=== PATIENT | male | born 1995 | race Caucasian/White ===

== ENCOUNTER 2021-10-25 23:01 | Emergency (ER) | payer OTHER, SELFPAY ==
--- NOTE | 2021-10-25 00:55 | RAD_ITS ---
STUDY: X-RAY CHEST REASON FOR EXAM: Male, 26 years old. fever TECHNIQUE: Single AP portable view of the chest. COMPARISON: None. FINDINGS: The lungs are clear and expanded. There is no demonstrated pleural abnormality. Normal size heart. Normal mediastinum and sean. Normal visualized pulmonary arteries. Normal visualized aortic arch and descending thoracic aorta. Normal visualized thoracic spine. Normal visualized ribs, clavicles, and shoulders. There is no demonstrated abnormality of the visualized soft tissue structures of the upper abdomen. RAD/Chest 1 View (Portable) IMPRESSION: Normal x-ray examination of the chest. Electronically Signed: Marcin Crain MD at 1:22 EST ,
[2021-10-25 23:02] VITALS: BP 161/99; PULSE 116; RESP 19; TEMP 38.3; O2SAT 96; BMI 45.6
--- NOTE | 2021-10-25 23:21 | EX.ED.DYSGE1 ---
HPI History of Present Illness Chief Complaint: Fever Informant: patient and spouse/S.O. Onset/Context/Timing Context: Gradual Onset Timing: Intermittent Current Severity: Mild Narrative Narrative: 27-year-old male no stated past medical or surgical history. Has had a fever for last 2 days. The highest its been document is 102.8. He also states has had body aches. Denies any vomiting. He chronically has loose stools that is not new. He has been able to orally hydrate himself has been drinking a lot of water. Said his urine is clear. It is not cloudy or bloody. He has also been using Tylenol. Complaining of diffuse body aches. No cough. No shortness of breath. No dysuria. Took a home COVID test that was negative. No one else at home is ill. He was not vaccinated against COVID. He denies any rashes. No abdominal pain. No cough. Prior similar symptoms: No Recent Illness/Hospitalization: No PFSH PFSH Medical History no medical history no medical history Home Medications NK 10/25/21 [History Last Taken Unknown] Allergy/AdvReac Type Severity Reaction Status Date / Time No Known Allergies Allergy Verified 10/25/21 23:02 Surgical History no surgical history no surgical history Social History Smoking Status: Current some day smoker tobacco type: e-cigarettes ROS ROS ED ROS Narrative Fever and body aches. Review of Systems ROS Unobtainable: Denies due to encephalopathy Constitutional Constitutional ED: Reports fever(s) Eyes Eyes: Denies change in vision ENT ENT ED: Denies ear pain, rhinorrhea or sore throat Cardiovascular Cardiovascular: Denies chest pain Respiratory/Chest Respiratory/Chest: Denies cough, dyspnea or sputum Gastrointestinal Gastrointestinal: Reports diarrhea; Denies abdominal pain, nausea or vomiting Genitourinary Genitourinary ED: Denies dysuria Musculoskeletal Musculoskeletal: Reports myalgias Integumentary Denies rash Neurologic Neurologic: Denies headache(s) Psychiatric Psychiatric: Denies depression Endocrine Endocrinology: Denies polyuria Allergic/Immunologic Allergic/Immunologic ED: Denies urticaria EXAM Physical Exam Narrative Exam Narrative: 23-year-old male no acute distress initial temperature here is 101. Pulse ox 96% on room air no signs of hypoxia. HEENT exam normal. Posterior pharynx normal. Moist weeks membranes. TMs normal bilaterally. Neck nontender no lymphadenopathy. No meningismus. Lungs clear to auscultation bilaterally. Heart tachycardic rate about 115 no murmur. Abdomen soft nontender normal bowel sounds no peritoneal signs. Obese. Moving all 4 extremities. Nontender. No rashes. Normal dealer card room strength bilaterally. Normal dorsi plantar flexion. Back nontender. Neurologically is awake alert with no focal motor deficits. Answering questions and following commands. Const Vital Signs: 10/25/21 23:02 10/26/21 00:05 Temperature 101 F H Temperature Source Oral Pulse Rate 116 H Respiratory Rate 19 H Respiratory Pattern Normal Blood Pressure 161/99 H Blood Pressure Mean 119 Pulse Ox 96 Oxygen Delivery Method Room Air Positive well nourished, well developed and obese; Negative for cachectic, contractures or unkempt General Appearance ED: well developed and NAD; Negative for unkempt, cachectic, contractures, cyanotic, diaphoretic or pallor Nutritional Appearance: obese; Negative for cachectic HEENT Reports TM's clear and moist mucous membranes Negative for trauma Tympanic Membrane ED: Yes TM's clear Eyes PERRL and EOMs intact bilaterally General Eye ED: Negative for pale conjunctiva or scleral icterus Neck no lymphadenopathy, supple and no JVD General: Negative for tenderness Chest Wall inspection of chest normal and palpation of chest normal Resp normal respiratory effort and clear to auscultation bilaterally Effort and Inspection: Negative for pain with movement Auscultation: Negative for rales, rhonchi or wheezes Cardio regular rhythm, S1 normal heart sound, S2 normal heart sound and no murmurs; Negative for regular rate Rate: tachycardic GI normal to inspection, nondistended, normoactive bowel sounds, non-tender, non-distended and no masses Inspection: Negative for abdominal distention Auscultation: normoactive bowel sounds Palpation: soft; Negative for tender, guarding or rebound tenderness present Back/Spine no CVA tenderness General Back: Negative for CVA tenderness Cervical Spine: Negative for cervical spine tenderness Thoracic Spine / Upper Back: Negative for thoracic spinal tenderness or paraspinal muscle tenderness Lumbar Spine / Lower Back: Negative for lumbar spinal tenderness Extremity normal to inspection General Extremety ED: Negative for edema or tenderness General Extremity: Negative for edema Neuro oriented x3 Sensorium / Orientation: alert; Negative for orientation impaired, lethargic or stuporous Motor Exam: strength 5/5 throughout; Negative for general weakness Psych mental status grossly normal Appearance: Negative for unkempt Attitude: No agitated Mood & Affect: Negative for depressed, anxious or tearful Skin no rashes or lesions noted and no wounds General Skin Exam: Negative for jaundice or pallor MDM MDM MDM Narrative Medical decision making narrative: 25-year-old male with a fever. Body aches. Exam benign. He does have a temperature here of 101. He does not look septic or toxic. Negative Covid test and chest x-ray. He is having no urinary symptoms. I do not think he needs blood work. He has been orally hydrating at home he and I discussed and he does not want nor did I think he needs an IV. He will be given antipyretics for his fever. Repeat a.m. patient is doing well at 1 AM. Abdomen nontender. Exam unchanged. No rashes. Patient be discharged home. Treat as a viral syndrome. Fluids and rest. Tylenol and Motrin. Follow-up. Off work today. Lab Data Attestation: I reviewed the patient's lab results. Lab results narrative: Rapid Covid antigen test is negative. Radiography Chest X-Ray - ED: 1 View, Read by ED Physician, Heart, Lungs, Mediastinum, Bony Structures and No Acute Disease Diagnostic Testing: Chest x-ray, portable, single view interpreted by myself shows no acute abnormality. Discharge Plan Triage Chief Complaint: Fever ED Provider: Calvin Terrell Dx/Rx/DC Orders Clinical Impression: Fever, Viral syndrome Instructions: ED Fever Control (Adult), ED Viral Syndrome (Adult) Prescriptions: No Action NK RF: 0 Primary Care Provider: Care Physician,Priscila Primary Referrals: Jose Jauregui MD [STAFF PHYSICIAN] - 3-5 Days if not improving NOT,DEFINED [NON-STAFF] - Activity Restrictions/Additional Instructions: Plenty of fluids and rest. Alternate ibuprofen and Tylenol for your fever. Follow-up with your doctor if not improving or return if worse. Disposition Disposition: Home, Self Care
[2021-10-26] MEDS: Acetaminophen 500 MG Tablet 1000 MG PO
[2021-10-26 01:15] VITALS: BP 158/80; PULSE 99; RESP 16; RESP 18; TEMP 37.9; O2SAT 97
== END 2021-10-26 01:17 | disposition home or self-care (01) ==
PROVIDERS: Emergency Provider Emergency Medicine; Visit Provider Emergency Medicine
DX: R50.9 Fever, unspecified (principal); B34.9 Viral infection, unspecified; F17.210 Nicotine dependence, cigarettes, uncomplicated; R19.7 Diarrhea, unspecified
CPT/HCPCS: 71045; 87426; 99283

== ENCOUNTER → 2022-06-20 | Outpatient (CLI) | payer OTHER, SELFPAY ==
[2022-06-20 17:25] LABS: Absolute Lymphocyte Count 2.59 X10^3/uL (0.83-4.51); Absolute Neutrophil Count 5.9 X10^3/uL (2.0-7.7); Basophil# 0.06 X10^3/uL; Basophil% 0.6 % (0-1); Eosinophil# 0.13 X10^3/uL; Eosinophils% 1.3 % (0-5); Hematocrit 44.8 % (40-54); Hemoglobin 15.1 g/dL (13.0-16.5); Lymphocyte # 2.59 X10^3/ul (0.83-4.51); Lymphocyte % 26.2 % (19-41); Mean Corp Hgb Conc 33.7 g/dL (32-36); Mean Corpuscular Hgb 29.2 pg (27.0-32.0); Mean Corpuscular Volume 86.7 fL (80-94); Mean Platelet Vol. 9.2 fl (6.2-12.0); Monocyte# 1.12 X10^3/uL; Monocyte% 11.3 % (0-10); NRBC Flagged by Analyzer 0 % (0-5); Neutrophil # 5.93 X10^3/uL (2.7-7.7); Neutrophil % 60.2 % (47-70); Platelet Count 277 K/mm3 (150-450); RBC Distribution Width CV 13.7 % (11.6-14.6); RBC Distribution Width SD 43.2 fl (35.1-43.9); Red Blood Count 5.17 M/mm3 (4.6-6.2); White Blood Count 9.9 K/mm3 (4.4-11.0)
[2022-06-20 17:30] LABS: Erythrocyte Sedimentation Rate 12 mm/hr (0-20)
[2022-06-20 17:51] LABS: AST(SGOT) 26 U/L (15-37); Alanine Aminotransfer ALT/SGPT 60 U/L (16-61); Albumin, Serum 3.9 g/dL (3.2-5.0); Alkaline Phosphatase 63 U/L (45-117); Anion Gap 6 (5-15); BUN 10 mg/dL (7-18); BUN/Creat Ratio 11.2 RATIO (10-20); CRP 3.12 mg/L (0.0-3.0); Calcium,Total 8.9 mg/dL (8.5-10.1); Chloride 109 mmol/L (98-107); Creatinine, Serum 0.89 mg/dL (0.70-1.30); EST Glomerular Filtration Rate 110 mL/min (>60); Est Glom Filt Rate - Afr Amer 133 mL/min (>60); Globulin 3.9 g/dL (2.2-4.2); Glucose 82 mg/dL (74-106); LDH 178 U/L (87-241); Potassium 3.7 mmol/L (3.5-5.1); Protein, Total 7.8 g/dL (6.4-8.2); Sodium Level 142 mmol/L (136-145)
[2022-06-22 13:07] LABS: Anti-Centromere B Ab <0.2 AI (0.0-0.9); Anti-Chromatin <0.2 AI (0.0-0.9); Anti-Jo <0.2 AI (0.0-0.9); Anti-Scleroderma-70 AB <0.2 AI (0.0-0.9); RNP Ab <0.2 AI (0.0-0.9); SJOGREN'S Anti-SS-A test < 0.2 AI (0.0-0.9); SJOGREN'S Anti-SS-B test < 0.2 AI (0.0-0.9); Smith Ab <0.2 AI (0.0-0.9)
[2022-06-23 11:26] LABS: Anti-dsDNA Ab <1 IU/mL (0-9)
[2022-06-24 15:08] LABS: Endomysial Antibody IgA Negative (Negative)
[2022-06-25 08:53] LABS: Immunoglobulin A 194 mg/dL (90-386); t-Transglutaminase IgA <2 U/mL (0-3)
[2022-06-28 19:07] LABS: Albumin 3.9 g/dL (2.9-4.4); Alpha-1-Globulins 0.3 g/dL (0.0-0.4); Alpha-2-Globulins 0.8 g/dL (0.4-1.0); Cytoplasmic Ab (C-ANCA) <1:20 titer (Neg:<1:20); Immunoglobulin A 195 mg/dL (90-386); Immunoglobulin E 25 IU/mL (6-495); Immunoglobulin G 1097 mg/dL (603-1613); Immunoglobulin M 62 mg/dL (20-172); PROEL- TOTAL PROTEIN 7.1 g/dL (6.0-8.5)
[2022-06-29 11:55] LABS: Perinuclear Ab (P-ANCA) <1:20 titer (Neg:<1:20)
== END | disposition home or self-care (01) ==
PROVIDERS: PCP Nurse Practitioner Family; Referring Provider Nurse Practitioner Adult Health; Visit Provider Nurse Practitioner Adult Health
DX: R10.9 Unspecified abdominal pain (principal); K52.9 Noninfective gastroenteritis and colitis, unspecified
CPT/HCPCS: 36415; 80053; 82784; 82785; 83516; 83615; 84165; 85025; 85652; 86140; 86225; 86235; 86255; 86256; 86334

== ENCOUNTER → 2022-06-27 | Outpatient (CLI) | payer OTHER, SELFPAY ==
[2022-07-05 12:27] LABS: Calprotectin, Stool 27 ug/g (0-120)
== END | disposition home or self-care (01) ==
LOC: LABSPEC 14:55
PROVIDERS: Visit Provider Nurse Practitioner Adult Health
DX: R10.9 Unspecified abdominal pain (principal); K52.9 Noninfective gastroenteritis and colitis, unspecified; K58.9 Irritable bowel syndrome, unspecified
CPT/HCPCS: 83630; 83993; 87493; 87506

== ENCOUNTER → 2022-06-28 | Outpatient (CLI) | payer OTHER, SELFPAY ==
--- NOTE | 2022-06-28 19:04 | CT_ITS ---
STUDY: CT ABDOMEN AND PELVIS WITH CONTRAST REASON FOR EXAM: Male, 27 years old. abd pain, diarrhea -- oral and iv RADIATION DOSAGE (If Supplied By Facility): CTDIvol = ( 17.07 ) mGy, DLP = ( 1361.15 ) mGycm TECHNIQUE: Transaxial images were obtained from the dome of the diaphragm to the symphysis pubis without oral contrast. Oral and amp; IV Readi-CAT and amp; 100mL Isovue-370 was administered. Sagittal and coronal images were reconstructed. Individualized dose optimization techniques were used for this CT. COMPARISON: None. FINDINGS: The visualized lung bases are unremarkable. The visualized portions of the heart are within normal limits. Normal liver. Multiple small bilirubin type stones are seen within the gallbladder without evidence for acute inflammation.. Normal spleen. Normal pancreas. Normal bilateral adrenal glands. Normal right kidney. Normal left kidney. Normal visualized stomach. Normal small intestine. Diffuse fecal retention noted within the colon.. The appendix is visualized and appears normal. Normal abdominal aorta. Normal inferior vena cava. Normal retroperitoneum. Normal urinary bladder. Normal abdominal wall. Normal osseous structures. CT/Abdomen/Pelvis WITH Contrast IMPRESSION: Cholelithiasis without definitive evidence for acute cholecystitis. Ultrasound would be useful for further evaluation if clinically warranted. Otherwise no significant abnormality Electronically Signed: Babatunde Horne MD at 22:22 EDT ,
== END | disposition home or self-care (01) ==
PROVIDERS: Referring Provider Nurse Practitioner Adult Health; Visit Provider Nurse Practitioner Adult Health
DX: K52.9 Noninfective gastroenteritis and colitis, unspecified (principal); R10.9 Unspecified abdominal pain
CPT/HCPCS: 74177; Q9967

== ENCOUNTER 2022-07-31 19:39 | Observation (INO) | payer OTHER, SELFPAY ==
[2022-07-31 19:40] VITALS: BP 139/90; PULSE 129; RESP 16; TEMP 36.8; O2SAT 97; BMI 46.3
--- NOTE | 2022-07-31 20:32 | US_ITS ---
EXAM: US ABDOMEN LIMITED, RIGHT UPPER QUADRANT CLINICAL INDICATION: RUQ PAIN TECHNIQUE: Real-time ultrasound of the right upper quadrant with image documentation. This report was created using [employer] report generation technology. COMPARISON: None. FINDINGS: LIVER: Hepatomegaly measuring 21.6 cm with no focal lesions. There is normal echotexture. No intrahepatic biliary ductal dilation. GALLBLADDER: Gallbladder is distended measuring 10.3 cm in length. Sonographic Ge''s sign is positive. Multiple gallstones are seen. No pericholecystic fluid. The gallbladder wall measures 3 mm. COMMON BILE DUCT: Common bile duct is normal. The proximal common bile duct is within normal limits for the patient''s age. PANCREAS: Pancreas is not visualized due to overlying bowel gas. RIGHT KIDNEY: Right kidney is normal. There is no hydronephrosis. No shadowing calculus. No focal lesion or perinephric collection is demonstrated. FREE FLUID: No ascites. US/Gallbladder IMPRESSION: Findings are concerning for acute cholecystitis with positive sonographic Ge''s sign noted. Electronically Signed: Tung Malcolm MD at 21:48 EST ,
--- NOTE | 2022-07-31 20:33 | ED.VIS.GI ---
HPI HPI - GI History of Present Illness Chief Complaint: Abd Pain Informant: patient Nausea/Vomiting/Emesis GI Symptom: Positive for Nausea and Vomiting Onset: Today Diarrhea/Melena/Hematochezia GI Symptom: Negative for Diarrhea, Melena or Hematochezia Associated Symptoms Associated Symptoms: Positive for Dysuria (today); Negative for Frequency, Hematuria or Urgency Narrative Narrative: Patient presents with epigastric pain radiates across his upper abdomen that has been there for 2 years. He states it has been worse for 2 months. When asked why he came in today for it he states it has been worse for all day today. In addition he has been vomiting all day, nonbloody nonbilious, he denies any fevers that he knows of. Sometimes the pain goes into his back. He states last month he was here for this and he was told he had gallstones, he was pulses follow-up with surgery and have a follow-up ultrasound but he forgot all about it. [facility] Medical History Abdominal pain Anxiety Depression Home Medications cholestyramine (with sugar) 4 gram oral powder 4 g PO BID diarrhea #378 grams 06/20/22 [Rx Last Taken Unknown] sucralfate 1 gram tablet 1 g PO QACHS #120 tabs 06/20/22 [Rx Last Taken Unknown] Allergy/AdvReac Type Severity Reaction Status Date / Time maple flavor Allergy Intermediate unk Uncoded 06/20/22 15:07 Social History Smoking Status: Current some day smoker tobacco type: e-cigarettes ROS ROS ED Constitutional Constitutional ED: Denies chills or fever(s) Eyes Eyes: Denies change in vision or diplopia ENT ENT ED: Denies rhinorrhea or sore throat Cardiovascular Cardiovascular: Denies chest pain or palpitations Respiratory/Chest Respiratory/Chest: Denies cough or dyspnea Gastrointestinal Gastrointestinal: Reports abdominal pain, nausea and vomiting; Denies diarrhea Genitourinary Genitourinary ED: Reports dysuria; Denies hematuria Musculoskeletal Musculoskeletal: Reports back pain; Denies neck pain Integumentary Denies abscess or rash Neurologic Neurologic: Denies headache(s), paresthesias or weakness Psychiatric Psychiatric: Denies anxiety or suicidal thoughts EXAM Physical Exam Const Vital Signs: 07/31/22 19:40 Temperature 98.2 F Temperature Source Temporal Pulse Rate 129 H Respiratory Rate 16 Blood Pressure 139/90 H Blood Pressure Mean 106 Pulse Ox 97 Oxygen Delivery Method Room Air Positive well nourished, well developed and obese General Appearance ED: well developed and NAD Nutritional Appearance: obese HEENT Reports moist mucous membranes normocephalic and atraumatic Eyes PERRL and EOMs intact bilaterally Neck full ROM and supple Resp normal respiratory effort and clear to auscultation bilaterally Cardio regular rate, regular rhythm and no murmurs GI non-distended GI Narrative: Mostly tender across upper abdomen worst in the right upper quadrant and epigastrium. No rebound tenderness. No guarding. Auscultation: normoactive bowel sounds Palpation: soft Back/Spine Back/Spine Narrative: Mild left CVA tenderness General Back: other FROM Extremity normal to inspection General Extremety ED: Negative for edema, pulses abnormal or tenderness General Extremity: Negative for edema or pulses abnormal Neuro oriented x3, CN's II-XII intact bilaterally and no sensory deficits noted Sensorium / Orientation: awake and alert Motor Exam: strength 5/5 throughout Skin no rashes or lesions noted and no wounds MDM MDM MDM Narrative Medical decision making narrative: Work-up and ultrasound consistent with acute cholecystitis. Does not have liver enzymes or lipase elevation. Symptoms treated, IV fluids given, Zosyn started, discussed with Dr. Lester, she is in agreement with admitting to her service for a cholecystectomy in the near future. Lab Data Attestation: I reviewed the patient's lab results. Labs: Laboratory Results - last 24 hr 07/31/22 07/31/22 07/31/22 20:24 20:24 20:45 WBC 11.9 H RBC 5.66 Hgb 16.0 Hct 48.1 MCV 85.0 MCH 28.3 MCHC 33.3 RDW Std Deviation 41.8 RDW Coeff of Kaly[place] 13.5 Plt Count 255 MPV 9.5 Immature Gran % (Auto) 0.900 Neut % (Auto) 83.1 H Lymph % (Auto) 7.4 L [place] % (Auto) 8.3 Eos % (Auto) 0.0 Baso % (Auto) 0.3 Absolute Neuts (auto) 9.9 H Absolute Lymphs (auto) 0.88 Nucleated RBC % 0 Sodium 137 Potassium 4.0 Chloride 107 Carbon Dioxide 20.0 L Anion Gap 10 BUN 13 Creatinine 0.96 Estim Creat Clear Calc 113.80 Est GFR (MDRD) Af Amer 122 Est GFR (MDRD) Non-Af 101 BUN/Creatinine Ratio 13.5 Glucose 105 Calcium 9.0 Total Bilirubin 0.70 AST 16 ALT 37 Alkaline Phosphatase 59 Total Protein 7.8 Albumin 3.8 Globulin 4.0 Albumin/Globulin Ratio 1.0 Lipase 69 L Urine Color Yellow Urine Clarity Clear Urine pH 5.0 Ur Specific [place] 1.025 Urine Protein 30 H Urine Glucose (UA) Normal Urine Ketones 5 H Urine Occult Blood Negative Urine Nitrite Negative Urine Bilirubin Negative Urine Urobilinogen Normal Ur Leukocyte Esterase Negative Urine RBC 0 SEEN Urine WBC 0 SEEN Ur Squamous Epith Cells 0 SEEN Urine Bacteria 0 SEEN Urine Mucus RARE Radiography Diagnostic Testing: Clinical Impression(s) from Imaging Studies Gallbladder Ultrasound 07/31/22 20:32 IMPRESSION: Findings are concerning for acute cholecystitis with positive sonographic Ge''s sign noted. Electronically Signed: Tung Malcolm MD at 21:48 EST , Discharge Plan Triage Chief Complaint: Abd Pain ED Provider: Giancarlo Salcedo Dx/Rx/DC Orders Clinical Impression: Calculus of gallbladder with acute cholecystitis Prescriptions: No Action cholestyramine (with sugar) 4 gram powder 4 g PO BID Qty: 378 1RF Rx Instructions: administer w/meal; avoid other meds within 1hr before or 4-6hr after dose sucralfate 1 gram tablet 1 g PO QACHS Qty: 120 0RF Primary Care Provider: Chio Buckner Referrals: Chio Buckner, [employer] [Primary Care Provider] - Disposition Disposition: Acute Care Hospital [facility]
[2022-07-31 20:47] LABS: Absolute Lymphocyte Count 0.88 X10^3/uL (0.83-4.51); Absolute Neutrophil Count 9.9 X10^3/uL (2.0-7.7); Basophil# 0.04 X10^3/uL; Basophil% 0.3 % (0-1); Hematocrit 48.1 % (40-54); Lymphocyte # 0.88 X10^3/ul (0.83-4.51); Lymphocyte % 7.4 % (19-41); Mean Corp Hgb Conc 33.3 g/dL (32-36); Mean Corpuscular Hgb 28.3 pg (27.0-32.0); Mean Platelet Vol. 9.5 fl (6.2-12.0); Monocyte# 0.99 X10^3/uL; Monocyte% 8.3 % (0-10); NRBC Flagged by Analyzer 0 % (0-5); Neutrophil # 9.91 X10^3/uL (2.7-7.7); Neutrophil % 83.1 % (47-70); Platelet Count 255 K/mm3 (150-450); RBC Distribution Width CV 13.5 % (11.6-14.6); RBC Distribution Width SD 41.8 fl (35.1-43.9); Red Blood Count 5.66 M/mm3 (4.6-6.2); White Blood Count 11.9 K/mm3 (4.4-11.0)
[2022-07-31 20:50] LABS: Bacteria 0 SEEN /hpf (None Seen); Red Blood Cells-Urine 0 SEEN /hpf (0-5); Squamous Epithelial Cells - UA 0 SEEN /hpf (0-5); White Blood Cells 0 SEEN /hpf (0-5)
[2022-07-31 20:52] LABS: Color, Urine Yellow (Yellow); Glucose, Dipstick Normal (Normal); Ketone-Dipstick 5 mg/dl (Negative); Leukocyte Esterase-Dipstick Negative /ul (Negative); Nitrite-Dipstick Negative (Negative); Occult Blood-Urine Negative /ul (Negative); Protein-Dipstick 30 mg/dl (Negative); Specific Gravity, Urine 1.025 (1.002-1.030); Urine Bilirubin Dipstick Negative (Negative); Urine Clarity Clear (Clear); Urine Urobilinogen Normal (Normal)
[2022-07-31 21:00] LABS: Mucous, Urine RARE /hpf (<or=2+)
[2022-07-31 21:04] LABS: AST(SGOT) 16 U/L (15-37); Alanine Aminotransfer ALT/SGPT 37 U/L (16-61); Albumin, Serum 3.8 g/dL (3.2-5.0); Alkaline Phosphatase 59 U/L (45-117); Anion Gap 10 (5-15); BUN 13 mg/dL (7-18); BUN/Creat Ratio 13.5 RATIO (10-20); Chloride 107 mmol/L (98-107); Creatinine, Serum 0.96 mg/dL (0.70-1.30); EST Glomerular Filtration Rate 101 mL/min (>60); Est Glom Filt Rate - Afr Amer 122 mL/min (>60); Glucose 105 mg/dL (74-106); Lipase 69 U/L (73-393); Protein, Total 7.8 g/dL (6.4-8.2); Sodium Level 137 mmol/L (136-145)
[2022-07-31] MEDS: Morphine 4 MG/ML Syringe IV (21:17)
[2022-07-31] MEDS: Ketorolac 30 MG/ML Syringe IV (21:17)
[2022-07-31] MEDS: Ondansetron 4 MG/2 ML Vial IV (21:17)
[2022-07-31] MEDS: 0.9% Normal Saline 1,000 ML 1000 ML IV (21:17)
[2022-07-31 22:13] VITALS: BP 139/90; BP 148/80; PULSE 129; PULSE 85; RESP 16; RESP 18; TEMP 36.8; O2SAT 97; O2SAT 98
[2022-07-31 23:33] VITALS: BMI 45.1
[2022-07-31 23:35] VITALS: BP 139/90; PULSE 129; RESP 16; TEMP 36.8; O2SAT 97
[2022-07-31 23:37] VITALS: BP 166/102; PULSE 109; RESP 18; TEMP 37.6; O2SAT 100
[2022-08-01] VITALS (17 sets, daily range): BP systolic 135–195; BP diastolic 80–119; PULSE 73–109; RESP 16–18; TEMP 36.7–37.6; O2SAT 93–100; BMI 45.1
--- NOTE | 2022-08-01 | GALL_PTH ---
PATIENT: JOSE MARISCAL LOC: PCU U#:[id number] AGE/SX: 27/M ROOM: [facility] RE07/31/[address]: Dr. Lillian Lester MD : 1995 BED: 1 DIS: 08/01/2022 SPEC #: [id number] RECD: 08/02/22 09:54 STATUS: REGGIE REPawan #: [id number] JONY: 08/01/22 00:[address]: Lillian Lester DEPT: SURGICAL PATHOLOGY RECD BY: Cristhian Caruso ENTERED: 08/02/22 09:54 SP TYPE: SAMANTHA CISSE DR: Chio Buckner, CAVALRY SCOUT-C Tissues: Gallbladder, NOS Procedures: Surgery Specimen Level III HEADER OPERATION: Laparoscopic, cholecystectomy with IOC PRE-OP DIAGNOSIS: Calculus of gallbladder with acute cholecystitis TISSUE SUBMITTED: Gallbladder MICROSCOPIC DIAGNOSIS Gallbladder, cholecystectomy: Chronic cholecystitis, cholelithiasis and cholesterolosis. SJ:jhon 08/05/2022 MICROSCOPIC DESCRIPTION Slides are reviewed. GROSS DESCRIPTION Received is one container labeled with the patient's name and designated gallbladder. The specimen consists of a gallbladder measuring 9 cm in length and up to 3 cm in diameter. The external surface is pink-meza, smooth and glistening for the most part. Focally it is granular, hemorrhagic and contains cautery artifact. The gallbladder contains green-yellow mucoid bile. Present in the container and also in the gallbladder are multiple mulberry, greenish-yellow stones measuring in aggregate 3.5 x 3 x 0.7 cm and 0.5 to 1 cm in greatest dimension. The mucosa also shows several yellowish streaks consistent with cholesterolosis. The mucosa is bile-stained and without any mass lesions. The gallbladder wall measures up to 0.3 cm in thickness. Lead Miner sections from the gallbladder and the cystic duct are submitted in one cassette. / CARLTON:jhon 08/02/2022 TC:3 CPT: 38244
[2022-08-01] MEDS: 0.9% Saline Lock 10 ML Syringe IV (00:08)
[2022-08-01] MEDS: 0.9% Normal Saline 1,000 ML 130 ML IV ×2 (00:08→14:58)
[2022-08-01 04:57] LABS: Absolute Lymphocyte Count 1.32 X10^3/uL (0.83-4.51); Absolute Neutrophil Count 6.3 X10^3/uL (2.0-7.7); Basophil# 0.03 X10^3/uL; Basophil% 0.3 % (0-1); Eosinophil# 0.01 X10^3/uL; Eosinophils% 0.1 % (0-5); Hematocrit 44.3 % (40-54); Lymphocyte # 1.32 X10^3/ul (0.83-4.51); Lymphocyte % 15.1 % (19-41); Mean Corp Hgb Conc 33.9 g/dL (32-36); Mean Corpuscular Volume 85.7 fL (80-94); Mean Platelet Vol. 9.5 fl (6.2-12.0); Monocyte# 1.02 X10^3/uL; Monocyte% 11.6 % (0-10); NRBC Flagged by Analyzer 0 % (0-5); Neutrophil # 6.32 X10^3/uL (2.7-7.7); Neutrophil % 72.1 % (47-70); Platelet Count 228 K/mm3 (150-450); RBC Distribution Width CV 13.4 % (11.6-14.6); RBC Distribution Width SD 42.2 fl (35.1-43.9); Red Blood Count 5.17 M/mm3 (4.6-6.2); White Blood Count 8.8 K/mm3 (4.4-11.0)
[2022-08-01 05:35] LABS: AST(SGOT) 16 U/L (15-37); Alanine Aminotransfer ALT/SGPT 34 U/L (16-61); Albumin, Serum 3.3 g/dL (3.2-5.0); Alkaline Phosphatase 51 U/L (45-117); Anion Gap 6 (5-15); BUN 14 mg/dL (7-18); BUN/Creat Ratio 13.3 RATIO (10-20); Bilirubin, Direct 0.19 mg/dL (0.00-0.30); Calcium,Total 8.2 mg/dL (8.5-10.1); Chloride 109 mmol/L (98-107); Creatinine, Serum 1.05 mg/dL (0.70-1.30); EST Glomerular Filtration Rate 91 mL/min (>60); Est Glom Filt Rate - Afr Amer 110 mL/min (>60); Estimated Creatinine Clearance 107.55 ml/min; Globulin 3.5 g/dL (2.2-4.2); Glucose 106 mg/dL (74-106); Potassium 3.8 mmol/L (3.5-5.1); Protein, Total 6.8 g/dL (6.4-8.2); Sodium Level 137 mmol/L (136-145)
--- NOTE | 2022-08-01 08:38 | HP.PCM_ITS ---
HPI - General General Date of Admission: 07/31/22 HPI Narrative JOSE MARISCAL, is a 27 M who presents to the ER due to epigastric and right upper quadrant pain. Patient states it got worse yesterday morning. Patient did have nausea and vomiting with this as well. Patient states he has had similar episodes about twice a month for several months that have been similar last about 5 hours. Patient continues to have epigastric?right upper quadrant pain even after getting pain meds but it is more tolerable. Patient had a leukocytosis of 11.9 on admission currently is 8.8. Patient had gallbladder ultrasound which showed a gallbladder wall 3 mm, gallstones, no pericholecystic fluid, normal common bile duct, positive Ge sign?patient's LFTs were normal. [facility] Medical History Abdominal pain Anxiety Depression Allergy/AdvReac Type Severity Reaction Status Date / Time maple flavor Allergy Intermediate unk Uncoded 07/31/22 23:34 Social History Smoking Status: Current some day smoker tobacco type: e-cigarettes Vital Signs Vital Signs Vital Signs: 07/31/22 19:40 07/31/22 22:13 07/31/22 22:13 Temperature 98.2 F 98.2 F Temperature Source Temporal Temporal Pulse Rate 129 H 85 129 H Respiratory Rate 16 18 16 Respiratory Effort Respiratory Depth Respiratory Pattern Blood Pressure 139/90 H 148/80 H 139/90 H Blood Pressure Mean 106 102 106 Blood Pressure Source Blood Pressure Position Blood Pressure Location Pulse Ox 97 98 97 Oxygen Delivery Method Room Air Room Air Room Air 07/31/22 23:35 07/31/22 23:37 08/01/22 00:18 Temperature 98.2 F 99.6 F H Temperature Source Temporal Oral Pulse Rate 129 H 109 H Respiratory Rate 16 18 Respiratory Effort Normal Non-Labored Respiratory Depth Normal Respiratory Pattern Normal Blood Pressure 139/90 H 166/102 H Blood Pressure Mean 106 123 Blood Pressure Source Monitor Blood Pressure Position Sitting Blood Pressure Location Right Forearm Pulse Ox 97 100 Oxygen Delivery Method Room Air Room Air Room Air 08/01/22 00:24 08/01/22 00:53 08/01/22 05:20 Temperature 99.6 F H 99.6 F H 98.8 F Temperature Source Oral Oral Oral Pulse Rate 109 H 109 H 92 Respiratory Rate 18 18 18 Respiratory Effort Respiratory Depth Respiratory Pattern Blood Pressure 166/102 H 166/102 H 135/81 H Blood Pressure Mean 123 123 99 Blood Pressure Source Monitor Monitor Blood Pressure Position Sitting Semi-Fowlers Blood Pressure Location Right Forearm Right Forearm Pulse Ox 100 100 97 Oxygen Delivery Method Room Air Room Air Room Air 08/01/22 05:58 Temperature 98.8 F Temperature Source Oral Pulse Rate 92 Respiratory Rate 18 Respiratory Effort Respiratory Depth Respiratory Pattern Blood Pressure 135/81 H Blood Pressure Mean 99 Blood Pressure Source Blood Pressure Position Blood Pressure Location Pulse Ox 97 Oxygen Delivery Method Room Air Weight Weight: 306 lb 0.026 oz Body Mass Index (BMI) 45.1 Physical Exam Const alert, oriented x3 and no apparent distress HEENT normocephalic and head/scalp atraumatic Resp normal respiratory effort Cardio regular rate GI soft to palpation; Negative for non-distended Palpation: tender epigastric and RUQ; Negative for guarding Extremity no clubbing, cyanosis or edema Neuro CN's II-XII intact bilaterally Psych mental status grossly normal Results Lab / Micro Data Result Diagrams: 08/01/22 04:10 08/01/22 04:10 Labs: Laboratory Results - last 24 hr 07/31/22 20:24: WBC 11.9 H, RBC 5.66, Hgb 16.0, Hct 48.1, MCV 85.0, MCH 28.3, MCHC 33.3, RDW Std Deviation 41.8, RDW Coeff of Kalyan 13.5, Plt Count 255, MPV 9.5, Immature Gran % (Auto) 0.900, Neut % (Auto) 83.1 H, Lymph % (Auto) 7.4 L, Dubois % (Auto) 8.3, Eos % (Auto) 0.0, Baso % (Auto) 0.3, Absolute Neuts (auto) 9.9 H, Absolute Lymphs (auto) 0.88, Nucleated RBC % 0 07/31/22 20:24: Sodium 137, Potassium 4.0, Chloride 107, Carbon Dioxide 20.0 L, Anion Gap 10, BUN 13, Creatinine 0.96, Estim Creat Clear Calc 113.80, Est GFR (MDRD) Af Amer 122, Est GFR (MDRD) Non-Af 101, BUN/Creatinine Ratio 13.5, Glucose 105, Calcium 9.0, Total Bilirubin 0.70, AST 16, ALT 37, Alkaline Phosphatase 59, Total Protein 7.8, Albumin 3.8, Globulin 4.0, Albumin/Globulin Ratio 1.0, Lipase 69 L 07/31/22 20:45: Urine Color Yellow, Urine Clarity Clear, Urine pH 5.0, Ur Specific [place] 1.025, Urine Protein 30 H, Urine Glucose (UA) Normal, Urine Ketones 5 H, Urine Occult Blood Negative, Urine Nitrite Negative, Urine Bilirubin Negative, Urine Urobilinogen Normal, Ur Leukocyte Esterase Negative, Urine RBC 0 SEEN, Urine WBC 0 SEEN, Ur Squamous Epith Cells 0 SEEN, Urine Bacteria 0 SEEN, Urine Mucus RARE 08/01/22 04:10: WBC 8.8, RBC 5.17, Hgb 15.0, Hct 44.3, MCV 85.7, MCH 29.0, MCHC 33.9, RDW Std Deviation 42.2, RDW Coeff of Kalyan 13.4, Plt Count 228, MPV 9.5, Immature Gran % (Auto) 0.800, Neut % (Auto) 72.1 H, Lymph % (Auto) 15.1 L, Dubois % (Auto) 11.6 H, Eos % (Auto) 0.1, Baso % (Auto) 0.3, Absolute Neuts (auto) 6.3, Absolute Lymphs (auto) 1.32, Nucleated RBC % 0 08/01/22 04:10: Sodium 137, Potassium 3.8, Chloride 109 H, Carbon Dioxide 22.0, Anion Gap 6, BUN 14, Creatinine 1.05, Estim Creat Clear Calc 107.55, Est GFR (MDRD) Af Amer 110, Est GFR (MDRD) Non-Af 91, BUN/Creatinine Ratio 13.3, Glucose 106, Calcium 8.2 L, Total Bilirubin 0.70, Direct Bilirubin 0.19, AST 16, ALT 34, Alkaline Phosphatase 51, Total Protein 6.8, Albumin 3.3, Globulin 3.5 Radiology Impression Gallbladder Ultrasound 07/31/22 20:32 IMPRESSION: Findings are concerning for acute cholecystitis with positive sonographic Ge''s sign noted. Electronically Signed: Tung Malcolm MD at 21:48 EST , Assessment & Plan Assessment/Plan (1) Calculus of gallbladder with acute cholecystitis: (2) Heartburn: PLAN: Plan Patient n.p.o./IV fluids IV Zosyn due to acute cholecystitis IV Protonix and will continue Protonix perioperatively for about 2 weeks postop Reviewed the anatomy with the patient and discussed the procedure: laparoscopic cholecystectomy with cholangiograms, possible open. Review risks including but not limited to bleeding, infection, hernia, bile leak, retained gallstones requiring another procedure ERCP- Endoscopic Retrograde Cholangiopancreatography, injury to another organ (bile ducts, common bile duct, small bowel, etc.) and conversion to an open procedure. All questions were answered. Surgery planned for noon today. Lillian Lester M.D. Pager: [phone] [facility] [address] [place] [address], [address] [place] [address] Office: [phone]
[2022-08-01] MEDS: Lactated Ringers 1,000 ML 15 ML IV ×2 (10:05→11:45)
--- NOTE | 2022-08-01 10:49 | RAD_ITS ---
CLINICAL HISTORY: Male, 27 years old. Post cholecystectomy PROCEDURE: CHOLANGIOGRAM - intraoperative CONSENT: Informed consent obtained SEDATION: General FLUOROSCOPY TIME (if supplied): (0:10) minutes/seconds, 51 c-arm films obtained in a cine loop Placement of the catheter and the procedure were performed by: Dr. Lester Fluoroscopy was provided by Marilee Quintana, who was present in the room time of the procedure. TECHNIQUE: (All elements of maximal sterile barrier technique followed, including US elements as applicable) After cholecystectomy, the cystic duct remnant was cannulized and contrast injected in a retrograde manner. There is normal filling of the biliary tree. No filling defects are noted to suspect retained stone. There is free flow of contrast into the duodenum, no extravasation of contrast outside the biliary tree is noted. RAD/Cholangiogram/ O R,Initial IMPRESSION: Normal intraoperative cholangiogram Electronically Signed: Benito Castle MD at 11:40 EST ,
[2022-08-01] MEDS: Bupivacaine 0.25% 30 ML Vial (11:24)
--- NOTE | 2022-08-01 11:34 | OP.PCM_ITS ---
Report of Operation Date of Procedure: 08/01/22 Pre-Operative Diagnosis: Acute cholecystitis Post-Operative Diagnosis: Same Surgery/Procedure Performed:: Laparoscopic cholecystectomy with cholangiograms Surgeon: Lillian Lester Type of Anesthesia: General/Supplemental Anesthesiologist: Justin Delgado Special Medications: Zosyn 3.375 g IV every 8 hours for acute cholecystitis Estimated Blood Loss (mL): 10 cc Description of Procedure: Indications: this is a 27 year-old male who developed abdominal pain/nausea/vomiting and on workup was found to have cholelithiasis, with a normal common bile duct. Laparoscopic cholecystectomy was elected. Description procedure: The patient was placed on operating table in supine po sition. A timeout was completed verifying correct patient, procedure, site, position and special equipment prior to beginning procedure. General Anesthesia was induced. The abdomen was prepped and draped in usual sterile fashion. An incision was made in the natural skin line above the umbilicus. The fascia was elevated and incised. The peritoneum was elevated and incised. Entry into the peritoneum was confirmed visually and no bowel was noted in the vicinity of the incision. Burch trocar was placed. The abdomen was insufflated with carbon dioxide to a pressure of 12-15 mmHg. Patient tolerated insufflation well. The laparoscope was then inserted and abdomen inspected. No injuries from initial trocar placement were noted. Additional trochars were then inserted in the following locations 5 mm trocar in the epigastrium and 2 more 5 mm trochars along the right costal margin. The abdomen was inspected no abnormalities were found. The table is placed in reverse Trendelenburg position with the right side up. The dome of the gallbladder was grasped with atraumatic grasper passed through the lateral port and retracted over the dome of the liver. Infundibulum was then grasped with atraumatic grasper through the midclavicular port and retracted to the right lower quadrant. This maneuver exposed Calot's triangle. The peritoneum overlying the gallbladder infundibulum was then incised and cystic duct and artery identified and circumferentially dissected. Knapp catheter was used for cholangiograms. The cholangiogram showed good filling of the common bile duct into the duodenum with no filling defects, good filling of the right and left bile ducts as well. The cystic duct and artery were then doubly clipped and divided close to the gallbladder. The gallbladder then dissected from its peritoneal attachments by electrocautery. Hemostasis was checked and the gallbladder and contained stones were removed using the endoscopic retrieval bag through the umbilical port. The gallbladder is passed off table as specimen. The gallbladder fossa was irrigated with saline and hemostasis obtained. There is no evidence of bleeding from the gallbladder fossa or cystic artery leakage of bile from the cystic duct stump. Secondary trochars removed under direct vision. No bleeding was noted the trocar sites. The laparoscope was withdrawn and umbilical trocar removed. The abdomen was allowed to collapse. The fascia of the 12 mm trocar was closed with a [id number] 0 Vicryl suture. The skin was closed with sutures of 4-0 Monocryl and Steri-Strips. The patient was extubated. The patient tolerated procedure well and was taken to the postanesthesia care unit in stable condition. Complications None
--- NOTE | 2022-08-01 11:36 | DCINST_ITS ---
Discharge Instructions Diet Discharge Diet: Light diet - advance as tolerated Activity Discharge Activity: May Not Drive (while taking narcotic pain medications.) May shower in (days): 1 Lifting Restrictions: no lifting >20 lbs x 2 wks, no strenuous exercise for 4 wks Dressing / Incision Call your doctor if your incision/area has: Continuous Slow Oozing, Sudden Increased Bleeding, Increased Pain/ Swelling, Increased Redness, Foul Smelling Discharge and Swelling at the incision site Call your doctor if you observe: Fever of 101 or Higher Remove Dressing in: 2 days Cleanse incision/area with: Soap & Water Additional Dressing/Incision Instructions:: Steri-Strips will fall off in 7 to 10 days, if they do not fall off okay to remove after 10 days. Follow Up Care Please Follow Up With: Lillian Lester MD When: Call the office for a follow-up appointment 2 weeks; after 5 PM and on the weekends call [phone] with any concerns. Test Results: Test results from this visit will be discussed in further detail at your follow- up appointment, if applicable. Discharge Plan Admission Admit Date/Time: 07/31/22 22:01 Attending Provider: Lillian Lester Primary Care Provider: Chio Buckner Discharge Orders/Prescriptions Prescriptions: New oxycodone-acetaminophen 5-325 mg tablet 1 - 2 tab PO Q6H PRN (Reason: pain) 3 Days Qty: 15 0RF pantoprazole 40 mg tablet,delayed release (DR/EC) 40 mg PO DAILY Qty: 30 0RF Referrals / Follow Up: Chio Buckner NP-C [Primary Care Provider] - Disposition Disposition (needs filled in before D/C Order can be placed): Home, Self Care
[2022-08-01] MEDS: Ketorolac 30 MG/ML Syringe IV (13:33)
[2022-08-01] MEDS: oxyCODONE 5 MG Tablet PO (14:12)
== END 2022-08-01 11:39 | disposition home or self-care (01) ==
LOC: ED 22:03 → PCU 22:16
PROVIDERS: Admitting Provider Surgery; Emergency Provider Emergency Medicine; PCP Nurse Practitioner Family; Visit Provider Surgery
PROC: (CPT 47610; principal; 2022-08-01 11:40)
DX: K80.00 Calculus of gallbladder with acute cholecystitis without obstruction (principal); F17.290 Nicotine dependence, other tobacco product, uncomplicated
CPT/HCPCS: 47563; 00790; 36415; 74300; 76000; 76705; 80048; 80053; 80076; 81001; 83690; 85025; 88304; 93005; 96361; 96365; 96366; 96367; 96375; 99218; 99251; 99284; J7030; J7120; A4216; G0378; G0463; J2405

== ENCOUNTER 2022-10-11 05:23 | Day surgery (SDC) | payer OTHER, SELFPAY ==
[2022-10-11] VITALS (7 sets, daily range): BP systolic 91–128; BP diastolic 53–86; PULSE 55–83; RESP 16–18; TEMP 36.6–37; O2SAT 95–98; BMI 46.6
[2022-10-11] MEDS: Lactated Ringers 1,000 ML 15 ML IV (05:53)
--- NOTE | 2022-10-11 06:30 | IMM_PTH ---
PATIENT: JOSE MARISCAL LOC: [facility] U#:[id number] AGE/SX: 27/M ROOM: RE10/11/[address]: Dr. Raymundo Burris DO : 1995 BED: DIS: 10/11/2022 SPEC #: [id number] RECD: 10/11/22 13:32 STATUS: REGGIE REPawan #: [id number] JONY: 10/11/22 06:[address]: Raymundo Burris DEPT: IMMUNOHISTOCHEMISTRY RECD BY: Cat Wang ENTERED: 10/11/22 13:33 SP TYPE: IMMUNO OTHR DR: Chio Buckner, RATE EXAMINER-C Tissues: B - Stomach, NOS Procedures: H Pylori (initial) PHYSICIAN & INSTITUTION [place] [address] SPECIMEN INFORMATION: Tissue Source: B ? Antrum biopsy Clinical Info: Chronic diarrhea, abdominal pain, heartburn Specimen Number: [id number] CPT code: 54555 METHODOLOGY: Deparaffinized sections of prefer/formalin-fixed tissue or PAP/DQ stained slides are incubated with monoclonal/polyclonal antibodies/oligonucleotide probes. Localization is made via biotin free immunoperoxidase method. Appropriate controls are performed and reacted as expected. Results on target cell population are indicated in the following table: RESULTS: ANTIBODY / CLONE RESULT Block B H Pylori (polyclonal) negative These tests were developed and their performance characteristics determined by [facility]. They may not have been cleared or approved by the U.S. Food and Drug Administration. The FDA has determined that such clearance or approval is not necessary. The above immunohistochemical/dualISH markers are ordered and reviewed by the Pathologist. INTERPRETATION: B. Antrum, biopsy: Negative for Helicobacter pylori organisms. AM:jhon 10/14/2022
--- NOTE | 2022-10-11 06:30 | COLBX_PTH ---
PATIENT: JOSE MARISCAL LOC: EN U#:[id number] AGE/SX: 27/M ROOM: RE10/11/[address]: Dr. Raymundo Burris DO : 1995 BED: DIS: 10/11/2022 SPEC #: [id number] RECD: 10/11/22 12:20 STATUS: REGGIE JEAN #: [id number] JONY: 10/11/22 06:[address]: Raymundo Burris DEPT: SURGICAL PATHOLOGY RECD BY: Johnathan Jerry ENTERED: 10/11/22 13:56 SP TYPE: COLON BX OTHR DR: Chio Buckner, APPLICATION PACKAGER-C Tissues: A - Duodenum, NOS B - Gastric mucous membrane C - Esophagus, NOS D - Ileum, NOS E - COLON BIOPSY Procedures: Special Stain Group II Surgery Specimen Level IV Alcian Blue/PAS (control) HEADER OPERATION: Colonoscopy, EGD ([facility] [place]) PRE-OP DIAGNOSIS: Chronic diarrhea, abdominal pain, heartburn TISSUE SUBMITTED: A - Duodenum biopsy, B - Antrum biopsy and H. pylori and path, C - Distal esophagus biopsy, D - Terminal ileum biopsy, E - Random colonic biopsies MICROSCOPIC DIAGNOSIS A. Terminal ileum, biopsy: Mild nonspecific chronic inflammation. See comment. B. Gastric antrum, biopsy: Mild chronic gastritis. See comment. C. Distal esophagus, biopsy: Gastroesophageal junctional mucosa with focal acute inflammation. No evidence of goblet cell metaplasia. See comment. D. Terminal ileum, biopsy: No pathologic change. E. Colon, random biopsy: No pathologic change. AM:jhon 10/14/2022 COMMENT A. No significant flattening of villi is identified. Clinical correlation is suggested. B. The results of immunohistochemistry for Helicobacter pylori will be reported separately ([id number]). C. Alcian blue/PAS stain with matched control supports the above diagnosis. MICROSCOPIC DESCRIPTION Slides are reviewed. GROSS DESCRIPTION A - Received in fixative is one container labeled with the patient's name and designated duodenum. The specimen consists of multiple irregular fragments of light meza soft tissue that in aggregate measure 1.5 x 0.3 x 0.1 cm. The specimen is totally submitted in one cassette. B - Received in fixative is one container labeled with the patient's name and designated antrum biopsy. The specimen consists of one irregular fragment of light meza soft tissue that measures 0.5 x 0.5 x 0.1 cm. The specimen is totally submitted in one cassette. C - Received in fixative is one container labeled with the patient's name and designated distal esophagus biopsy. The specimen consists of multiple irregular fragments of light meza soft tissue that in aggregate measure 1 x 0.2 x 0.1 cm. The specimen is totally submitted in one cassette. D - Received in fixative is one container labeled with the patient's name and designated terminal ileum biopsy. The specimen consists of multiple irregular fragments of light meza soft tissue that in aggregate measure 1 x 0.6 x 0.1 cm. The specimen is totally submitted in one cassette. E - Received in fixative is one container labeled with the patient's name and designated random colon biopsy. The specimen consists of multiple irregular fragments of light meza soft tissue that in aggregate measure 1.5 x 0.8 x 0.1 cm. The specimen is totally submitted in one cassette. / AM:jhon 10/11/2022 TC:3 CPT: 22049 x5, 72864
--- NOTE | 2022-10-11 06:41 | HP.PCM_ITS ---
History and Physical Date of Admission: 10/11/22 ?27 M who presents to the office today for chronic diarrhea that began in childhood. Accompanied by his . Stools are never formed. A typical day is at least 3 BMs per day, but on bad days can be 10x. He does have nocturnal diarrhea. Diarrhea is urgent. No hematochezia or melena, but he does get some blood on toilet paper if very frequent BMs. If he takes 3 Imodium the diarrhea will stop for the day. GI sxs are worse with stress and anxiety. Severe abdominal pain, lasts about 4 hours, started about 3 mos ago, occurs about 2x a month, sharp, epigastric, nonradiating, no cause or pattern he can discern. Always has abdominal pain, this is more generalized, never resolves, just the severity varies, has been like this for years. Random abdominal cramps, can be worse with increased frequency of BMs. He has heartburn, intermittent, has been daily for the last month, doesn't take anything for it. No dysphagia. No nausea or vomiting. Normal appetite. No early satiety. No unexplained weight loss. No fever or chills. His mother has GERD. No FH IBD or autoimmune disorders. Occas vapes, not on a regular basis. He works hauling concrete. ROS Const Constitutional: No fatigue ENT ENT: No difficulty swallowing Gastro GI: Positive for abdominal pain, bloating, diarrhea, heartburn and excessive flatus; No belching, change in bowel habits, change in stool character, coffee ground emesis, constipation, cramping, difficulty swallowing, feeling full early, incontinent of stools, Vomiting blood/hematemesis, Blood in stool, loose stools, Black,tarry stools, nausea/dyspepsia, pain with swallowing, vomiting or other Musc Musculoskeletal: No joint pain Skin Skin: No yellowing of the eye or itchy eyes Psych Psychiatric: Positive for anxiety and Positive for depression Endo Endocrine: No fatigue Aller/Imm Allergy/Immunologic: No itchy eyes Pramod/Lymp Hematologic/Lymphatic: No easy bleeding or easy bruising Exam Const General: cooperative and comfortable Nutritional Appearance: obese Orientation: alert, awake and oriented x3 HENMT Head: normal to inspection Eyes General: appearance normal, both eyes and all related structures Resp Effort & Inspection: normal respiratory effort GI Inspection: normal to inspection Palpation: soft, no hepatosplenomegaly, no masses and tender in the epigastrum, in the LLQ, in the RLQ and periumbilically Skin General: no rashes or lesions noted Quality Reporting Tobacco Screening (CMS 138) Smoking Status: Current some day smoker Assessment and Plan Assessment and Plan (1) Chronic diarrhea: ?Status:?Chronic ?Plan: 27 yr old male with chronic diarrhea since childhood. He didn't play football due to concern about his urgent diarrhea. Has nocturnal diarrhea. He also has heartburn, severe intermittent epigastric pain, and a constant generalized abdominal pain. We discussed DDx IBD, infection, celiac, IBS. He will get blood and stool tests. He declines PPI for now. Will try sucralfate to see if that h elps the epigastric pain. He would like to try cholestyramine bid for the diarrhea. We could also add dicyclomine 10 mg bid for cramps and diarrhea. CT abd pel w/ oral and IV ordered. He will be scheduled for EGD to evaluate for esophagitis, Martinez's, hiatal hernia, peptic ulcer disease, celiac disease. He will be scheduled for colonoscopy to evaluate for Crohn's, UC, microscopic colitis. Will contact them with results and recommendations. Will have f/u 2 wks after endoscopy. (2) Abdominal pain: ?Status:?Acute ?Plan: see above (3) Heartburn: ?Status:?Acute ?Plan: see above ? ? ? Orders: Orders OVA+PARA w/Giardia EIA [id number] Today K52.9 - Noninfective gastroenteritis and colitis, unspecified, R10.9 - Unspecified abdominal pain ? Abdomen/Pelvis WITH Contrast Today K52.9 - Noninfective gastroenteritis and colitis, unspecified, R10.9 - Unspecified abdominal pain ? Miscellaneous Lab Procedure Today K52.9 - Noninfective gastroenteritis and colitis, unspecified, R10.9 - Unspecified abdominal pain ? Comprehensive Metabolic Profil Today K52.9 - Noninfective gastroenteritis and colitis, unspecified, R10.9 - Unspecified abdominal pain ? CRP Today K52.9 - Noninfective gastroenteritis and colitis, unspecified, R10.9 - Unspecified abdominal pain ? LDH Today K52.9 - Noninfective gastroenteritis and colitis, unspecified, R10.9 - Unspecified abdominal pain ? CBC W/Diff, Automated Today K52.9 - Noninfective gastroenteritis and colitis, unspecified, R10.9 - Unspecified abdominal pain ? Erythrocyte Sed Rate Today K52.9 - Noninfective gastroenteritis and colitis, unspecified, R10.9 - Unspecified abdominal pain ? BETY Comprehensive Panel Today K52.9 - Noninfective gastroenteritis and colitis, unspecified, R10.9 - Unspecified abdominal pain ? Calprotectin, Stool Today K52.9 - Noninfective gastroenteritis and colitis, unspecified, R10.9 - Unspecified abdominal pain ? CDIFF (PCR) Today K52.9 - Noninfective gastroenteritis and colitis, unspecified, R10.9 - Unspecified abdominal pain ? ENTERIC PATHOGEN PANEL STOOL Today K52.9 - Noninfective gastroenteritis and colitis, unspecified, K58.9 - Irritable bowel syndrome without diarrhea, R10.9 - Unspecified abdominal pain ? Stool Lactoferrin/WBC Today K52.9 - Noninfective gastroenteritis and colitis, unspecified, R10.9 - Unspecified abdominal pain ? ANCA Today K52.9 - Noninfective gastroenteritis and colitis, unspecified, R10.9 - Unspecified abdominal pain ? Celiac Disease Profile Today K52.9 - Noninfective gastroenteritis and colitis, unspecified, R10.9 - Unspecified abdominal pain ? Immunoglobulins G/A/M/E Today K52.9 - Noninfective gastroenteritis and colitis, unspecified, R10.9 - Unspecified abdominal pain ? EDDI + Protein Elect, Serum Today K52.9 - Noninfective gastroenteritis and colitis, unspecified, R10.9 - Unspecified abdominal pain ? Medications: New cholestyramine (with sugar) 4 gram ?? administer w/meal; avoid other meds within 1hr before or 4-6hr after dose 4 grams? PO BID 378 grams 1RF diarrhea ? ? sucralfate 1 g? PO QACHS 120 tabs 0RF ? ? I have examined the patient and the H&P has been reviewed. There are no clinical changes since date of exam.
--- NOTE | 2022-10-11 07:17 | OP.EGD_ITS ---
Patient Name: Rodger Egan Procedure Date: 10/11/2022 6:13 AM Date of : 1995 Age: 27 Procedure: Upper GI endoscopy Indications: Epigastric abdominal pain, Heartburn Providers: Raymundo Burris DO Referring MD: Keyonna Diallo Medicines: Monitored Anesthesia Care Patient Profile: This is a 27 year old male. Refer to note in patient chart for documentation of history and physical. Patient has symptoms of acute epigastric abdominal pain and chronic nausea. Complications: No immediate complications. Procedure: Pre-Anesthesia Assessment: - Prior to the procedure, a History and Physical was performed, and patient medications and allergies were reviewed. The risks and benefits of the procedure and the sedation options and risks were discussed with the patient. All questions were answered and informed consent was obtained. Patient identification and proposed procedure were verified by the physician. Mental Status Examination: normal. Prophylactic Antibiotics: The patient does not require prophylactic antibiotics. Prior Anticoagulants: The patient has taken no previous anticoagulant or antiplatelet agents. ASA Grade Assessment: II - A patient with mild systemic disease. After reviewing the risks and benefits, the patient was deemed in satisfactory condition to undergo the procedure. The anesthesia plan was to use monitored anesthesia care (MAC). Immediately prior to administration of medications, the patient was re-assessed for adequacy to receive sedatives. The heart rate, respiratory rate, oxygen saturations, blood pressure, adequacy of pulmonary ventilation, and response to care were monitored throughout the procedure. The physical status of the patient was re-assessed after the procedure. After obtaining informed consent, the endoscope was passed under direct vision. Throughout the procedure, the patient's blood pressure, pulse, and oxygen saturations were monitored continuously. The colonoscope was introduced through the mouth, and advanced to the second part of duodenum. The upper GI endoscopy was accomplished without difficulty. The patient tolerated the procedure well. Scope In: 6:45:49 AM Scope Out: 6:51:11 AM Total Procedure Duration Time 0 hours 5 minutes 22 seconds Findings: LA Grade C (one or more mucosal breaks continuous between tops of 2 or more mucosal folds, less than 75% circumference) esophagitis with no bleeding was found 35 to 38 cm from the incisors. Biopsies were taken with a cold forceps for histology. Patchy mildly erythematous mucosa without bleeding was found in the gastric antrum and in the prepyloric region of the stomach. Biopsies were taken with a cold forceps for histology. Verification of patient identification for the specimen was done. Estimated blood loss was minimal. Diffuse moderately erythematous mucosa without active bleeding and with no stigmata of bleeding was found in the duodenal bulb and in the first portion of the duodenum. Biopsies were taken with a cold forceps for histology. Verification of patient identification for the specimen was done. Estimated blood loss was minimal. Impression: - LA Grade C reflux esophagitis. Biopsied. - Erythematous mucosa in the antrum and prepyloric region of the stomach. Biopsied. - Erythematous duodenopathy. Biopsied. Recommendation: - Discharge patient to home. - Resume previous diet. - Continue present medications. - Use Protonix (pantoprazole) 40 mg PO BID for 8 weeks. Procedure Code(s): --- Professional --- 92703, Esophagogastroduodenoscopy, flexible, transoral; with biopsy, single or multiple CPT copyright 2017 [employer]. All rights reserved. The codes documented in this report are preliminary and upon professional fee coder review may be revised to meet current compliance requirements. Raymundo Burris DO 10/11/2022 7:16:16 AM This report has been signed electronically. Number of Addenda: 0 Note Initiated On: 10/11/2022 6:13 AM
--- NOTE | 2022-10-11 07:17 | OP.CCLET_ITS ---
10/11/2022 Keyonna Diallo Re : Upper GI endoscopy procedure for Rodger Egan Dear Np. Buckner This procedure was performed on Tuesday, October 11, 2022. My impressions and recommendations are as follows: Impressions : - LA Grade C reflux esophagitis. Biopsied. - Erythematous mucosa in the antrum and prepyloric region of the stomach. Biopsied. - Erythematous duodenopathy. Biopsied. Recommendations : - Discharge patient to home. - Resume previous diet. - Continue present medications. - Use Protonix (pantoprazole) 40 mg PO BID for 8 weeks. My findings are described in the full procedure note, which is enclosed. If I can be of further assistance, please feel free to contact me at . Sincerely, Raymundo Friend, 10/11/2022 7:16:16 AM This report has been signed electronically.
--- NOTE | 2022-10-11 07:19 | OP.COLON_ITS ---
Patient Name: Rodger Egan Procedure Date: 10/11/2022 6:51 AM Date of : 1995 Age: 27 Procedure: Colonoscopy Indications: Clinically significant diarrhea of unexplained origin Providers: Raymundo Burris DO Referring MD: Keyonna Diallo Medicines: Monitored Anesthesia Care Patient Profile: This is a 27 year old male. Refer to note in patient chart for documentation of history and physical. Patient has symptoms of acute epigastric abdominal pain and chronic nausea. Last Colonoscopy: none. The patient's first colonoscopy is today. Complications: No immediate complications. Procedure: Pre-Anesthesia Assessment: - Prior to the procedure, a History and Physical was performed, and patient medications and allergies were reviewed. The risks and benefits of the procedure and the sedation options and risks were discussed with the patient. All questions were answered and informed consent was obtained. Patient identification and proposed procedure were verified by the physician. Mental Status Examination: normal. Prophylactic Antibiotics: The patient does not require prophylactic antibiotics. Prior Anticoagulants: The patient has taken no previous anticoagulant or antiplatelet agents. ASA Grade Assessment: II - A patient with mild systemic disease. After reviewing the risks and benefits, the patient was deemed in satisfactory condition to undergo the procedure. The anesthesia plan was to use monitored anesthesia care (MAC). Immediately prior to administration of medications, the patient was re-assessed for adequacy to receive sedatives. The heart rate, respiratory rate, oxygen saturations, blood pressure, adequacy of pulmonary ventilation, and response to care were monitored throughout the procedure. The physical status of the patient was re-assessed after the procedure. After I obtained informed consent, the scope was passed under direct vision. Throughout the procedure, the patient's blood pressure, pulse, and oxygen saturations were monitored continuously. The colonoscope was introduced through the anus and advanced to the terminal ileum. The colonoscopy was performed without difficulty. The patient tolerated the procedure well. The quality of the bowel preparation was good. Scope In: 6:53:08 AM Scope Withdrawal Time 0 hours 6 minutes 47 seconds Scope Out: 7:02:38 AM Total Procedure Duration Time 0 hours 9 minutes 30 seconds Findings: An area of mildly congested mucosa was found in the recto-sigmoid colon, in the descending colon, at the hepatic flexure and in the ascending colon. Biopsies were taken with a cold forceps for histology. Verification of patient identification for the specimen was done. Estimated blood loss was minimal. A segmental area of the terminal ileum was congested. Biopsies were taken with a cold forceps for histology. Verification of patient identification for the specimen was done. Estimated blood loss was minimal. Impression: - Congested mucosa in the recto-sigmoid colon, in the descending colon, at the hepatic flexure and in the ascending colon. Biopsied. - Congested mucosa in the terminal ileum. Biopsied. Recommendation: - Discharge patient to home. - Resume previous diet. - Continue present medications. - Await pathology results. -Colestipol 1 g p.o. twice daily - Repeat colonoscopy in 5 years for surveillance based on pathology results. Procedure Code(s): --- Professional --- 82572, Colonoscopy, flexible; with biopsy, single or multiple CPT copyright 2017 [employer]. All rights reserved. The codes documented in this report are preliminary and upon warp dyeing vat tender review may be revised to meet current compliance requirements. Raymundo Burris DO 10/11/2022 7:19:02 AM This report has been signed electronically. Number of Addenda: 0 Note Initiated On: 10/11/2022 6:51 AM
--- NOTE | 2022-10-11 07:20 | OP.CCLET_ITS ---
10/11/2022 Keyonna Diallo Re : Colonoscopy procedure for Rodger Egan Dear Np. Buckner This procedure was performed on Tuesday, October 11, 2022. My impressions and recommendations are as follows: Impressions : - Congested mucosa in the recto-sigmoid colon, in the descending colon, at the hepatic flexure and in the ascending colon. Biopsied. - Congested mucosa in the terminal ileum. Biopsied. Recommendations : - Discharge patient to home. - Resume previous diet. - Continue present medications. - Await pathology results. -Colestipol 1 g p.o. twice daily - Repeat colonoscopy in 5 years for surveillance based on pathology results. My findings are described in the full procedure note, which is enclosed. If I can be of further assistance, please feel free to contact me at . Sincerely, Raymundo Burris, 10/11/2022 7:19:02 AM This report has been signed electronically.
== END 2022-10-11 08:11 | disposition home or self-care (01) ==
LOC: EN 05:26 → AC 05:26
PROVIDERS: PCP Nurse Practitioner Family; Referring Provider Nurse Practitioner Family; Visit Provider Internal Medicine Gastroenterology
PROC: 0DJD8ZZ Inspection of Lower Intestinal Tract, Via Natural or Artificial Opening Endoscopic (ICD-10-PCS; CPT 45378; principal; 2022-10-11 06:25)
DX: K29.50 Unspecified chronic gastritis without bleeding (principal); K52.9 Noninfective gastroenteritis and colitis, unspecified; K21.00 Gastro-esophageal reflux disease with esophagitis, without bleeding; K63.89 Other specified diseases of intestine; R10.84 Generalized abdominal pain; F17.200 Nicotine dependence, unspecified, uncomplicated
CPT/HCPCS: 45380; 43239; 88305; 88313; 88342; J7120; J2405

== ENCOUNTER 2025-07-18 19:05 | Emergency (ER) | payer OTHER, SELFPAY ==
[2025-07-18 19:05] VITALS: BP 174/104; PULSE 91; RESP 18; TEMP 36.9; O2SAT 100
--- NOTE | 2025-07-18 19:20 | RAD_ITS ---
PROCEDURE: RAD/Tibia & Fibula 2 Views
--- NOTE | 2025-07-18 19:20 | RAD_ITS ---
PROCEDURE: RAD/Ankle min 3 Views
[2025-07-18] MEDS: HYDROcodone Bitartrate/Apap 5/325 Tablet PO (21:04)
[2025-07-18 21:07] VITALS: BMI 49.2
--- NOTE | 2025-07-18 21:29 | ED.VIS.LOWEX ---
HPI History of Present Illness HPI Narrative: Patient presents with right lower back esophagogastritis that occurred 1 week ago. Patient states that he was seen at [facility] and [facility] and was told it was a hematoma. Patient states he has been taking ibuprofen with minimal relief. Patient states his pain is worse with any weightbearing. Patient states nothing makes it better. Patient admits to some tingling into his foot. Patient denies any weakness. Patient denies any radiation of the pain to his thigh or knee. Patient denies any other injuries. Chief Complaint: Lower Extremity Injury Informant: patient Onset/Context/Timing Onset: Weeks (1) Context: Sudden Onset Timing: Continuous Quality of Pain: Sharp and Burning Location: Right lower leg Worsened by: Weightbearing Relieved by: Nothing Associated Symptoms Associated Symptoms: Positive for Parasthesia; Negative for Weakness or Loss of Funtion [facility] Medical History Gastric reflux Depression Anxiety Home Medications ?Medication ?Instructions ?Recorded ?Last Taken ?Type pantoprazole 40 mg tablet,delayed 40 mg PO BID #180 tabs 02/25/23 Unknown Rx release psyllium husk 0.52 gram capsule 0.52 g PO BID #180 caps 02/25/23 Unknown Rx (Fiber (psyllium husk)) buspirone 5 mg tablet 5 mg PO BID #60 tabs 05/04/25 Unknown Rx colestipol 1 gram tablet 1 g PO BID #90 tabs 05/04/25 Unknown Rx dicyclomine 20 mg tablet 20 mg PO BID #60 tabs 05/04/25 Unknown Rx diphenoxylate-atropine 2.5 1 tab PO BID PRN diarrhea #60 tabs 05/04/25 Unknown Rx mg-0.025 mg tablet (Lomotil) diphenoxylate-atropine 2.5 2 tab PO BID PRN diarrhea 05/04/25 Unknown History mg-0.025 mg tablet (Lomotil) loperamide 2 mg capsule 4 mg PO BID PRN loose stool 05/04/25 Unknown History hydrocodone-acetaminophen 5-325mg 1 tab PO Q6H PRN PRN Pain 3 days 07/18/25 Unknown Rx 5mg-325mg #10 TABLETS Allergy/AdvReac Type Severity Reaction Status Date / Time Food Allergies: Uncoded Allergy Rash Verified 07/18/25 19:09 Surgical History History of myringotomy Hx of tonsillectomy History of laparoscopic cholecystectomy Social History Smoking Status: Former smoker ROS ROS ED Constitutional Constitutional ED: Denies chills or fever(s) Eyes Eyes: Denies blurry vision or change in vision ENT ENT ED: Denies rhinorrhea or sore throat Cardiovascular Cardiovascular: Denies chest pain or palpitations Respiratory/Chest Respiratory/Chest: Denies cough or dyspnea Gastrointestinal Gastrointestinal: Denies nausea or vomiting Genitourinary Genitourinary ED: Denies dysuria or hematuria Musculoskeletal Musculoskeletal: Denies back pain or neck pain Integumentary Denies abscess or rash Neurologic Neurologic: Denies headache(s) or weakness Allergic/Immunologic Allergic/Immunologic ED: Denies mouth swelling or urticaria EXAM Physical Exam Const Vital Signs: 07/18/25 19:05 Temperature 98.4 F Temperature Source Oral Pulse Rate 91 Respiratory Rate 18 Blood Pressure 174/104 H Blood Pressure Mean 127 Pulse Ox 100 Oxygen Delivery Method Room Air Positive well nourished and well developed Constitutional Narrative: BMI is 49.3. General Appearance ED: well developed and NAD HEENT Reports moist mucous membranes Neck full ROM and supple Extremity Extremity Narrative: There is tenderness, edema, and ecchymosis over the right lower leg. It is worse over the medial aspect. There is no bony crepitance or step-off noted. Range of motion was limited in all motions of the right lower leg secondary to pain. Sensation was intact to light touch bilaterally in the lower extremities. Pedal pulses are equal bilaterally. Strength is 5/5 bilaterally in the lower extremities. Neuro oriented x3, CN's II-XII intact bilaterally, moves all extremities and no sensory deficits noted Sensorium / Orientation: alert Motor Exam: strength 5/5 throughout Psych mental status grossly normal MDM MDM MDM Narrative Medical decision making narrative: Differential diagnosis includes occult fracture, hematoma, contusion, and sprain. X-rays of the right tibia and fibula will be obtained to assess for fracture. X-rays of the right ankle will be obtained to assess for fracture and dislocation. Radiography Diagnostic Testing: Clinical Impression(s) from Imaging Studies Ankle X-Ray 07/18/25 19:20 IMPRESSION: No acute fracture or dislocation. Reading Location: [facility] Tibia/Fibula X-Ray 07/18/25 19:20 IMPRESSION: No acute fracture or dislocation. Reading Location: [facility] X-rays of the right ankle were obtained. There are 3 views. On my independent interpretation, there is no acute fracture or dislocation noted. There is no soft tissue swelling noted. Radiologist also interpreted the x-rays and agrees. X-rays of the right tibia and fibula were obtained. There are 4 views. On my independent interpretation, there is no acute fracture or dislocation noted. There are some mild soft tissue swelling noted. Radiologist also interpreted the x-rays and agrees. Treatment and Re-Evaluation Narrative: Patient was given a dose of [place] here. Patient was advised of his findings. Patient was instructed to ice and elevate the right leg. Patient was instructed to follow-up with his primary care physician in 5 to 7 days. Patient was given a prescription for a short course of [place]. Patient was given a note for work. Patient was instructed to return if worse in any way. Patient understood and was agreeable with the plan. All questions were answered. Discharge Plan Triage Chief Complaint: Lower Extremity Injury ED Provider: Justin Bowen Dx/Rx/DC Orders Clinical Impression: Hematoma of right lower leg, Elevated blood pressure reading Instructions: ED Contusion, Lower Extremity Prescriptions: New hydrocodone-acetaminophen 5-325 mg tablet 1 tab PO Q6H PRN PRN (Reason: Pain) 3 Days Qty: 10 0RF No Action pantoprazole 40 mg tablet,delayed release (DR/EC) 40 mg PO BID Qty: 180 3RF psyllium husk [Fiber (psyllium husk)] 0.52 gram capsule 0.52 g PO BID Qty: 180 3RF Rx Instructions: start with once a day, increase to twice daily if needed loperamide 2 mg capsule 4 mg PO BID PRN (Reason: loose stool) diphenoxylate-atropine [Lomotil] 2.5-0.025 mg tablet 2 tab PO BID PRN (Reason: diarrhea) colestipol 1 gram tablet 1 g PO BID Qty: 90 1RF dicyclomine 20 mg tablet 20 mg PO BID Qty: 60 3RF buspirone 5 mg tablet 5 mg PO BID Qty: 60 3RF diphenoxylate-atropine [Lomotil] 2.5-0.025 mg tablet 1 tab PO BID PRN (Reason: diarrhea) Qty: 60 2RF Primary Care Provider: Kamini Suarez Referrals: Kamini Suarez DO [Primary Care Provider, Family Practice] - 5-7 Days Print Language: Serbian Disposition Disposition: Home, Self Care
[2025-07-18 21:55] VITALS: BP 104/94; PULSE 86; RESP 16; TEMP 36.9; O2SAT 100
== END 2025-07-18 22:02 | disposition home or self-care (01) ==
PROVIDERS: Emergency Provider Emergency Medicine; PCP Student in an Organized Health Care Education/Training Program; Visit Provider Emergency Medicine
DX: S80.11XA Contusion of right lower leg, initial encounter (principal); R03.0 Elevated blood-pressure reading, without diagnosis of hypertension; Z87.891 Personal history of nicotine dependence; K21.9 Gastro-esophageal reflux disease without esophagitis; R20.2 Paresthesia of skin; X58.XXXA Exposure to other specified factors, initial encounter
CPT/HCPCS: 73590; 73610; 99283